=== PATIENT | male | born 1940 | race Caucasian/White ===

== ENCOUNTER 2016-12-14 06:14 | Day surgery (SDC) | payer OTHER ==
[2016-12-08 14:24] LABS: BASOPHILS 0.5 %; BASOPHILS ABSOLUTE 0.03 10/3/uL (0.0-0.16); EOSINOPHILS 2.3 %; EOSINOPHILS ABSOLUTE 0.14 10/3/uL (0.0-0.53); HEMATOCRIT 40.5 % (40.0-51.0); HEMOGLOBIN 13.6 g/dL (13.6-17.8); IMMATURE GRANULOCYTES 0.2 %; IMMATURE GRANULOCYTES ABSOLUTE 0.01 10/3/uL (0.0-0.11); LYMPHOCYTES 23.3 %; LYMPHOCYTES ABSOLUTE 1.41 10/3/uL (0.67-4.30); MANUAL DIFF NO %; MEAN CORPUS HGB CONC 33.6 g/dL (32.0-36.0); MEAN CORPUSCULAR HEMOGLOB 31.4 pg (26.0-34.0); MEAN CORPUSCULAR VOLUME 93.5 fL (80-100); MEAN PLATELET VOLUME 10.9 fL (9.2-13.0); MONOCYTES 10.6 %; MONOCYTES ABSOLUTE 0.64 10/3/uL (0.21-1.20); NEUTROPHILS 63.1 %; NEUTROPHILS ABSOLUTE 3.81 10/3/uL (2.02-8.40); PLATELET COUNT 200 10/3/uL (150-400); RBC DISTRIBUTION WIDTH 14.6 % (12.0-16.0); RED CELL COUNT 4.33 10/6/uL (4.7-6.1)
[2016-12-08 14:30] LABS: PARTIAL THROMBO TIME 25.8 SEC (22.5-37.2); PROTIME (NOT ORD) 12.9 SEC (12.0-14.5)
[2016-12-08 14:38] LABS: CALCIUM, SERUM 9.1 MG/DL (8.5-10.4); CHLORIDE, SERUM 108 MMOL/L (96-112); CO2 (CARBON DIOXIDE) 25 MMOL/L (24-34); CREATININE 0.75 MG/DL (0.70-1.30); GFR AFRICAN AMERICAN 103 ML/MIN (>=60); GFR NON AFRICAN AMERICAN 89 ML/MIN (>=60); GLUCOSE, SERUM 92 MG/DL (60-99); POTASSIUM, SERUM 4.2 MMOL/L (3.5-5.3); SODIUM, SERUM 143 MMOL/L (135-148)
[2016-12-08 14:39] LABS: BUN (BLOOD UREA NITROGEN) 14 MG/DL (6-23)
--- NOTE | ~2016-12-14 | OP ---
Record Of Operation [facility] [address] [place]. [address] NAME: SUSY NAQVI JR : 40 STATUS : [facility]#: [id number] AGE: 76 ADM/REG DATE : 12/14/16 MR#: [id number] REPORT SERV DATE: 12/15/16 DICTATED BY: LEONARD MEJIAS DATE: 12/15/16 REPORT STATUS : Draft TRANSCRIBED BY: MODL DATE: 12/15/16 DATE OF PROCEDURE: 12/14/2016 PREOPERATIVE DIAGNOSIS: Benign prostatic hypertrophy with obstruction and incomplete bladder emptying. PROCEDURE: Cystoscopy, green-light photo laser vaporization of the prostate. SURGEON: Leonard Mejias M.D. ANESTHESIA: General. BLOOD LOSS: 10 mL. FLUID REPLACEMENT: 700 mL crystalloid. DRAINS: 20-Turkmen Searcy style catheter. INDICATION: Mr. Naqvi is a 75-year-old male, who has obstructing BPH and incomplete bladder emptying. TECHNIQUE: The patient was identified, brought to the operating room, administered general anesthetic agent by the Anesthesia Service and intubated. He was positioned in dorsal lithotomy position. The penis, groin, scrotum, and perineum were prepped and draped in the usual sterile fashion. A 22-Turkmen cystoscopic sheath with 30-degree lens was used for cystourethroscopy. The anterior and bulbous urethra were normal. The prostatic urethra was hypertrophied with lateral lobe and median lobe hypertrophy. The bladder was entered and surveyed, moderately trabeculated. There were no urothelial lesions. There were no stones. The ureteral orifices were normal in position, location, and configuration. The entire bladder was surveyed and then the cystoscope was removed. I placed a 24-Turkmen continuous flow laser sheath with an obturator into the bladder. A laser bridge, 30-degree lens, and the green-light laser were inserted. Starting at 100 bryan power cut a groove in the prostate from the bladder neck back to the verumontanum at the 5 o'clock and then the 7 o'clock position. I then carried this groove down to the capsule of the prostate. I then turned the power level up to 170 bryan power and ablated the lateral lobe tissue. I also ablated the floor of the prostate. I turned the power back down to 100 bryan power and ablated anteriorly. I sculpted around the verumontanum but no ablation was done distal to the verumontanum. I irrigated the bladder free of all debris and clots. I attempted to place a catheter and I had some difficulty, so I reintroduced the laser bridge, placed a wire through the laser bridge into the bladder and removed the laser bridge and over the wire positioned a 20-Turkmen Searcy style catheter. 10 mL of sterile water was inflated into the catheter balloon. The wire was removed, and the procedure was terminated. Record Of Operation [address] [place]. [address] NAME: SUSY NAQVI JR : 40 STATUS : [facility] PAT#: [id number] AGE: 76 ADM/REG DATE : 12/14/16 MR#: [id number] REPORT SERV DATE: 12/15/16 DICTATED BY: LEONARD MEJIAS DATE: 12/15/16 REPORT STATUS : Draft TRANSCRIBED BY: AKIRA DATE: 12/15/16 PF/AKIRA Leonard Mejias M.D. / [id number] CC: Lg Arevalo M.D.
[~2016-12-14 06:14] MED LIST: ASAB PO; CO Q-10100 MG PO; LIPITOR20 PO; LIPITOR40 PO; MAGOX4 PO; MIRALAXPKT PO; NIZORSHAM TOP; NO CURRENT MEDS; OTC EYE DROPS OPH; PLAVIX PO; PRIN10 PO; PROAIR HFA INH; PROSCAR5 PO; VITAMIN D31000 UNIT PO; ZESTRIL20 MG PO
== END 2016-12-14 16:59 | disposition home or self-care (01) ==
LOC: SDC 06:14
PROVIDERS: Urology
PROC: 0V508ZZ Destruction of Prostate, Via Natural or Artificial Opening Endoscopic (ICD-10-PCS; principal; 2016-12-14 07:45)
DX: N40.1 Benign prostatic hyperplasia with lower urinary tract symptoms (principal); N13.8 Other obstructive and reflux uropathy; I25.10 Atherosclerotic heart disease of native coronary artery without angina pectoris; I25.2 Old myocardial infarction; I10 Essential (primary) hypertension; Z95.5 Presence of coronary angioplasty implant and graft; Z95.1 Presence of aortocoronary bypass graft; Z88.5 Allergy status to narcotic agent; Z79.899 Other long term (current) drug therapy; Z79.82 Long term (current) use of aspirin
CPT/HCPCS: 80048; 85025; 85610; 85730; 93005; A9270-GY; C1769; J2370; J2405; J2710; J3010